=== PATIENT | female | born 1980 | race Caucasian/White ===

== ENCOUNTER 2022-11-30 17:47 | Emergency (ER) | payer OTHER, SELFPAY ==
--- NOTE | ~2022-11-30 | CT_ITS ---
EXAMINATION: CT abdomen pelvis w con DATE: 11/30/2022 20:16 INDICATION: LOWER ABDOMINAL PAIN X 2 HOURS TECHNIQUE: Computed tomography (CT) of the abdomen and pelvis was performed with 100 mL Omnipaque-350 intravenous contrast. Automated exposure control and iterative reconstruction technique were employe d. The dose-length product was 1238.80 mGy-cm. COMPARISON: None. 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 Biliary/Gallbladder: Cholelithiasis. No bile duct dilation. Pancreas: No mass or duct dilation. Spleen: Normal. Adrenals:No mass. Kidneys: No mass, stone, or hydronephrosis. GI tract: Mild distal esophageal and gastric wall edema. Small hiatal hernia. Prior gastric surgery. No small or large bowel dilation. Normal appendix. Mild diverticulosis. Short segment of mild wall ed bay and very mild pericolonic inflammatory change at the junction of the descending and sigmoid colon . Mesentery/Peritoneum: No ascites, mass, or free air. Retroperitoneum: No mass. Pelvis: Normal urinary bladder. 14 mm right ovarian cyst versus dominant follicle. 2.7 cm circumscrib ed rounded hypoenhancing area in the anterior uterine body wall. Endocervical canal is mildly distend ed by fluid. Soft Tissues: Soft tissues and body wall unremarkable. Bones: No acute osseous finding. IMPRESSION: Mild esophagitis/gastritis. Mild diverticulosis with a short segment wall edema and very mild inflammatory change at the junction of the descending and sigmoid colon that could represent a focus of very mild early diverticulitis i n the appropriate clinical context. 2.7 cm hypoenhancing area in the anterior uterine body may represent a fibroid or endometrial polyp. Endocervical fluid. Consider pelvic ultrasound for further evaluation. Reviewed, dictated and finalized at location [facility]. IMPRESSION: Mild esophagitis/gastritis. Mild diverticulosis with a short segment wall edema and very mild inflammatory change at the junction of the descending and sigmoid colon that could represent a focus of very mild early diverticulitis in the appropriate clinical context. 2.7 cm hypoenhancing area in the anterior uterine body may represent a fibroid or endometrial polyp. Endocervical fluid. Consider pelvic ultrasound for furthe r evaluation.
[2022-11-30 17:47] VITALS: BP 120/84; PULSE 82; RESP 16; TEMP 36.1; O2SAT 98
[2022-11-30 19:04] LABS: Hemoglobin 12.8 g/dL (12.0-15.0); Mean Corpuscular HGB Conc 32.8 g/dL (32.0-36.0); Mean Corpuscular Hemoglobin 29.4 pg (27.0-31.0); Mean Corpuscular Volume 89.4 fL (78.0-102.0); Platelet Count Result 257 K/mm3 (150-420); Red Blood Count 4.36 M/mm3 (4.20-5.40)
[2022-11-30 19:07] LABS: Add Urine Microscopic? YES; Appearance Urine Clear (Clear); Bilirubin Urine 1+ (Negative); Blood Urine Negative (Negative); Color Urine Yellow (Yellow); Glucose Urine UA Negative (Negative); Ketones Urine 1+ (Negative); Leukocyte Esterase Ur Negative LEU/UL (Negative); Nitrate Urine Negative (Negative); Protein Urine Negative (Negative); RBC Urine None seen /hpf (0-2); Specific Grav Ur >= 1.030 (1.010-1.020); WBC Urine None seen /hpf (0-3); pH Urine 5.5 (5.0-8.0)
[2022-11-30 19:08] LABS: Bacteria Urine 1+ /hpf; Squamous Epithelial Cell Urine Few /hpf (Few)
[2022-11-30 19:09] LABS: INR 0.9; Partial Thromboplastin Time 29.3 SEC (23.90-30.70); Prothrombin Time 10.3 Seconds (9.50-12.10)
--- NOTE | 2022-11-30 19:09 | ED.ABDPAIN ---
HPI - Abdominal Pain General Chief Complaint: Abdominal Pain Stated Complaint: lower abdominal pain Time Seen by Provider: 11/30/22 18:11 Source: patient Mode of arrival: ambulatory History of Present Illness HPI narrative: 42-year-old female with a history of diabetes mellitus, anxiety, arthritis, status post uterine ablation, status post gastric sleeve surgery presents to the ER with a 3 hour history of -- acute onset lower abdominal pain. No fever. No nausea/ vomiting / diarrhea. Patient did not have any dysuria or hematuria. She presented to the ER his pain has improved. MD elicited complaint: abdominal pain Pertinent past history: none Onset (ago): hour(s) ( Started 3 days ago.) Pain Consistency: constant Location: suprapubic Severity: mild Radiation: none Migration to: no migration Exacerbating factors: nothing Relieving factors: nothing Associated symptoms: denies other symptoms Related Data Patient : No Home Medications Medication Instructions Recorded Confirmed escitalopram oxalate 20 mg tablet 20 mg PO DAILY 11/30/22 11/30/22 (Lexapro) sulfasalazine 500 mg tablet 200 mg PO TID 11/30/22 11/30/22 tirzepatide 2.5 mg/0.5 mL 2.5 mg subcut WEEKLY 11/30/22 11/30/22 subcutaneous pen injector (Mounjaro) Allergies Allergy/AdvReac Type Severity Reaction Status Date / Time No Known Allergies Allergy Verified 11/30/22 17:54 Review of Systems Review of Systems: All systems reviewed & are unremarkable except as noted in HPI and below Constitutional: Constitutional: Reports as per HPI and Reports no additional constitutional complaints Eyes: Eyes: Reports as per HPI and Reports no additional eye complaints ENT: Reports system reviewed and no additional complaints, except as documented and Reports as per HPI Cardiovascular: Cardiovascular: Reports as per HPI and Reports no additional cardiovascular complaints Respiratory: Respiratory: Reports as per HPI and Reports no additional respiratory complaints Gastrointestinal: Gastrointestinal: Reports as per HPI and Reports no additional gastrointestinal complaints Comments: Suprapubic abdominal pain Genitourinary: Genitourinary: Reports no additional female genitourinary complaints Musculoskeletal: Musculoskeletal: Reports no additional musculoskeletal complaints Integumentary/Breasts: Skin/Breast: Reports system reviewed and no additional complaints, except as docu Neurologic: Reports system reviewed and no additional complaints, except as documented Psychiatric: Psychiatric: Reports no additional psychiatric complaints Endocrine: Endocrine: Reports no additional endocrine complaints Hematologic/Lymphatic: Hematologic/Lymphatic: Reports no additional hematologic/lymphatic complaints Allergic/Immunologic: Allergic/Immunologic: Reports no additional allergic/immunologic complaints Exam Const: General: healthy appearing Nutritional Appearance: well nourished Orientation/consciousness: patient oriented x3 Limitations: no limitations HENMT: Head: normal to inspection Ears: external ears normal Face/Nose/Sinus: Normal external nose present Face and sinus: normal facial exam Mouth: Yes Normal oral and palatal mucosa present Throat: posterior oropharynx normal Eyes: Conjunctivae: conjunctivae normal Pupils: Equal, round and reactive pupils present EOM: EOMs intact bilaterally Direct Ophthalmoscopy: no photophobia Neck: Neck: normal visual inspection Chest: Chest palpation & inspection: normal inspection of the chest Resp: Effort & Inspection: normal respiratory effort Auscultation: clear to auscultation bilaterally Cardio: Rate: regular rate Rhythm: regular rhythm GI: GI Palp: Yes Soft to palpation Auscultation: normal bowel sounds Other: no tenderness/rigidity / rebound. : General: Yes no CVA tenderness Back/Spine/Pelvis: Back: no CVA tenderness Skin: General skin exam: normal color Rashes: no rashes
[2022-11-30 19:10] LABS: Alanine Aminotransferase 11 U/L (14-59); Albumin Level 3.9 g/dL (3.4-5.0); Alkaline Phosphatase 51 U/L (46-116); Anion Gap 9 mmol/L (8-16); Aspartate Amino Transferase 12 U/L (15-37); Bilirubin,Total 0.6 mg/dL (0.00-1.00); Blood Urea Nitrogen 11 mg/dL (7-18); Calcium 9.1 mg/dL (8.5-10.1); Carbon Dioxide 29 mmol/L (21-32); Chloride 103 mmol/L (98-108); Estimated Glomerular Filt Rate > 60; Glucose 112 mg/dL (70-99); Lipase 59 U/L (16-77); Osmolality Calculated 292 mOsm/kg (285-295); Potassium 3.8 mmol/L (3.5-5.1); Sodium 141 mmol/L (136-145); Total Protein 7.2 g/dL (6.4-8.2)
[2022-11-30 19:12] LABS: Neutrophils Percent Manual 86 % (46-73); Total Cells Counted 100
[2022-11-30 19:13] LABS: Band Neutrophils Percent 0 % (0-6); Eosinophils Absolute Manual 0.12 K/mm3 (0.02-0.5); Eosinophils Percent Manual 1 % (1-6); Lymphocytes Absolute Manual 1.08 K/mm3 (1.1-4.5); Lymphocytes Percent Manual 9 % (18-44); Monocytes Absolute Manual 0.48 K/mm3 (0.1-0.90); Monocytes Percent Manual 4 % (3-9); Neutrophils Absolute Manual 10.32 K/mm3 (1.7-7.2); Platelet Estimate Adequate (Adequate)
[2022-11-30 19:15] LABS: Lactic Acid Reflex 0.6 mmol/L (0.4-2.0)
[2022-11-30 19:45] LABS: Pregnancy On Board Control Positive; Urine Pregnancy Test Negative
[2022-11-30 19:50] VITALS: BP 125/80; PULSE 79; RESP 16; TEMP 37.1; O2SAT 99
[2022-11-30] MEDS: AMOXICILLIN/CLAVULANATE K 875-125 MG TAB 1 TABLET PO (20:48)
[2022-11-30 20:56] VITALS: BP 115/68; PULSE 86; RESP 16; TEMP 36.6; O2SAT 98
== END 2022-11-30 20:58 | disposition home or self-care (01) ==
PROVIDERS: Emergency Provider Internal Medicine Critical Care Medicine; PCP Family Medicine
DX: K57.92 Diverticulitis of intestine, part unspecified, without perforation or abscess without bleeding (principal); N83.201 Unspecified ovarian cyst, right side; R10.30 Lower abdominal pain, unspecified; E11.9 Type 2 diabetes mellitus without complications
CPT/HCPCS: 36415; 74177; 80053; 81001; 81025; 83605; 83690; 85025; 85610; 85730; 99284; A9270; Q9967